=== PATIENT | male | born 1940 | race Caucasian/White ===

== ENCOUNTER → 2017-08-12 | Outpatient (CLI) | payer OTHER ==
[~2017-08-12] MED LIST: CEFTIN250 MG PO; FLONASE16 G1 BOTH NARES
== END | disposition home or self-care (01) ==
DX: R26.2 Difficulty in walking, not elsewhere classified (principal); M25.552 Pain in left hip; M25.652 Stiffness of left hip, not elsewhere classified; M16.12 Unilateral primary osteoarthritis, left hip; M62.81 Muscle weakness (generalized); Z74.1 Need for assistance with personal care
CPT/HCPCS: 97161 GP; 97165 GO; 97530 GP; 97537 GO; G8978 GP; G8979 GP; G8980 GP; G8987 GO; G8988 GO; G8989 GO

== ENCOUNTER 2017-09-22 23:21 | Inpatient (IN) | payer OTHER ==
[~2017-09-22] VITALS: Ht 182.9 cm; Wt 89.2 kg
[~2017-09-22 23:21] MED LIST changes: +IRON325 M1 PO
[2017-09-23 09:35] VITALS: BP 172/78
[2017-09-23 14:40] LABS: HEMATOCRIT 40.8 % (38.0-50.0); MCHC 33.8 G/DL (30.0-36.0); MCV 94.7 FL (86-99); MEAN PLAT.VOLUME 9.2 uM^3 (9.0-12.4); PLATELET COUNT 169 K/uL (156-360); RBC DIS.WIDTH-SD 45.1 % (39-53); RED BLOOD COUNT 4.31 M/uL (4.00-5.50)
[2017-09-23 15:55] VITALS: BP 166/79
[2017-09-23 20:15] VITALS: BP 141/74
[2017-09-24 00:21] VITALS: BP 135/61
[2017-09-24 04:23] VITALS: BP 143/66
[2017-09-24 05:32] LABS: HEMATOCRIT 37.9 % (38.0-50.0); MCV 93.8 FL (86-99)
[2017-09-24 06:02] LABS: ANION GAP 9 MEQ/L (2-14); CHLORIDE 104 MEQ/L (99-109); GFR ESTIMATE (CALCULATED) > 59 mL/min/; GLUCOSE 172 mg/dL (70-99); POTASSIUM 4.8 MEQ/L (3.7-5.4); SAMPLE HEMOLYSIS CHECK 1; SAMPLE ICTERIC CHECK 0; SAMPLE LIPEMIA CHECK 0; SODIUM 139 MEQ/L (136-147); UREA NITROGEN (BUN) 24 mg/dL (9-23)
[2017-09-24 08:00] VITALS: BP 133/60
[2017-09-24 11:51] VITALS: BP 131/60
[2017-09-24 15:41] VITALS: BP 123/59
[2017-09-24 20:16] VITALS: BP 140/63
[2017-09-25] VITALS: BP 132/64
[2017-09-25 04:30] VITALS: BP 125/60
[2017-09-25 07:00] LABS: INTER. NORMALIZED RATIO 1.1; PROTHROMBIN TIME 12.9 SEC (10.2-12.9)
[2017-09-25 08:00] VITALS: BP 129/60
[2017-09-25 08:03] LABS: HEMATOCRIT 35.7 % (38.0-50.0); MCV 93.9 FL (86-99)
[2017-09-25] MEDS ORDERED: HYDROCODON-ACE1 EAC7 PO (08:20)
[2017-09-25] MEDS ORDERED: COUMADIN2.5 MG PO (08:20)
[2017-09-25 12:02] VITALS: BP 128/69
== END 2017-09-25 13:52 | disposition home health service (06) | DRG 470 ==
LOC: ENRESERV 23:21 → 2SOUTH 09-23 08:50 → ENRESERV 09-23 10:34 → 2SOUTH 09-23 10:54 → 3WEST 09-23 15:41
PROVIDERS: Orthopaedic Surgery; Physician Assistant
PROC: 0SRB0JZ Replacement of Left Hip Joint with Synthetic Substitute, Open Approach (ICD-10-PCS; principal; 2017-09-23)
DX: M16.12 Unilateral primary osteoarthritis, left hip (principal); J30.2 Other seasonal allergic rhinitis
CPT/HCPCS: 73501; 73502; 76000; 80048; 85014; 85018; 85027; 85610; 94799; J0131; J0330; J0690; J1100; J1170; J1650; J2250; J2405; J3010; J7030; J7050